=== PATIENT | female | born 1955 | race African-American/Black ===

== ENCOUNTER 2016-12-25 14:19 | Emergency (ER) | payer MEDICAID | END 2016-12-25 15:42 | disposition home or self-care (01) | LOC: D.ER 14:19 | DX: M75.52 Bursitis of left shoulder (principal); Z86.73 Personal history of transient ischemic attack (TIA), and cerebral infarction without residual deficits; I10 Essential (primary) hypertension ==

== ENCOUNTER 2019-02-25 17:15 | Emergency (ER) | payer OTHER ==
[~2019-02-25] VITALS: Ht 167.6 cm; Wt 67.7 kg
[2019-02-25 17:33] VITALS: Ht 167.6 cm; Wt 67.7 kg
[2019-02-25] MEDS ORDERED: COZAAR100 MG PO (17:35)
[2019-02-25] MEDS ORDERED: NEURONTIN 300300 MG (17:35)
[2019-02-25] MEDS ORDERED: HCTZ25 MG PO (17:36)
[2019-02-25] MEDS ORDERED: NORVASC10 MG PO (17:36)
[2019-02-25] MEDS ORDERED: LYRICA75 MG PO (22:57)
[2019-02-25 23:09] VITALS: BP 120/70
== END 2019-02-25 23:09 | disposition home or self-care (01) ==
LOC: D.ER 17:15
DX: I69.398 Other sequelae of cerebral infarction (principal); I69.344 Monoplegia of lower limb following cerebral infarction affecting left non-dominant side; I10 Essential (primary) hypertension; J44.9 Chronic obstructive pulmonary disease, unspecified